=== PATIENT | female | born 1985 | race Asian ===

== ENCOUNTER 2019-04-05 10:01 | Emergency (ER) | payer OTHER ==
[~2019-04-05] VITALS: Ht 162.6 cm; Wt 50.0 kg
[2019-04-05] MEDS ORDERED: METHOCARBAMOL 500MG TABLET PO ONE (11:15)
[2019-04-05] MEDS ORDERED: KETOROLAC 60MG/2ML VIAL IM ONE (11:15)
[2019-04-05 11:23] VITALS: BP 113/67
== END 2019-04-05 12:40 | disposition home or self-care (01) ==
LOC: ER 10:01
DX: M54.2 Cervicalgia (principal); R03.0 Elevated blood-pressure reading, without diagnosis of hypertension; V49.49XA Driver injured in collision with other motor vehicles in traffic accident, initial encounter; Y93.89 Activity, other specified; Y92.411 Interstate highway as the place of occurrence of the external cause
CPT/HCPCS: 72125; 81025; 96372; 99284; J1885